=== PATIENT | female | born 1980 | race American Indian/Alaskan Native ===

== ENCOUNTER 2019-08-22 14:23 | Emergency (ER) | payer SELFPAY ==
--- NOTE | 2019-08-22 14:34 | Event Note ---
ED Screening Note Date of service: 08/22/19 Time: 14:30 ED Screening Note: 38 y/o female comes for lower back pain for years just worst last Sunday. Had a near fall today while at work. This initial assessment/diagnostic orders/clinical plan/treatment(s) is/are subject to change based on patients health status, clinical progression and re- assessment by fellow clinical providers in the ED. Further treatment and workup at subsequent clinical providers discretion. Patient/guardian urged not to elope from the ED as their condition may be serious if not clinically assessed and managed. Initial orders include:
[2019-08-22 14:36] VITALS: BP 128/81
[2019-08-22] MEDS ORDERED: KETOROLAC 30 MG/1 ML INJ IM ONE (15:40)
[2019-08-22] MEDS ORDERED: oxyCODONE /ACETAMINOPHEN 5-325MG TAB PO ONE (15:40)
--- NOTE | 2019-08-22 15:46 | Emergency Department Report ---
ED Back Pain/Injury HPI - General Chief Complaint: Back Pain/Injury Stated Complaint: PAIN IN LOWER BACK PAIN/FELL AT WORK Time Seen by Provider: 08/22/19 14:29 Source: patient Limitations: No Limitations - History of Present Illness Initial Comments: Nora is a 38 yo female with hx of asthma and back pian who presents with one week of central lower back pain. Sharp pain severe 8/10, worse with position change and bending. Has had recurrent back pain for 10+ year. Pain radiates to both buttocks. Due to pain, almost fell at work. MD Complaint: back pain -: Gradual, week(s) (1) Similar Symptoms Previously: Yes Place: home, work Radiation: buttocks Severity: severe Severity scale (0 -10): 8 Quality: sharp Consistency: constant Improves With: none Worsens With: none Associated Symptoms: denies other symptoms - Related Data Previous Rx's Medication Instructions Recorded Last Taken Type Cyclobenzaprine [Flexeril 10mg] 10 mg PO Q8H PRN #21 tablet 08/23/14 Unknown Rx HYDROcodone/APAP 5-325 [[place]aker 1 each PO Q6HR PRN #12 tablet 08/23/14 Unknown Rx 5-325 mg TAB] cephALEXin [Keflex] 500 mg PO TID #21 capsule 08/23/14 Unknown Rx Ibuprofen [Motrin 800 MG tab] 800 mg PO Q8HR PRN #30 tablet 10/27/16 Unknown Rx Cyclobenzaprine [Flexeril] 10 mg PO TID PRN #20 tablet 08/22/19 Unknown Rx HYDROcodone/APAP 5-325 [[place] 1 each PO Q6HR PRN #10 tablet 08/22/19 Unknown Rx 5/325] Ibuprofen [Motrin 800 MG tab] 800 mg PO TID #15 tablet 08/22/19 Unknown Rx Allergies Allergy/AdvReac Type Severity Reaction Status Date / Time No Known Allergies Allergy Verified 06/11/14 08:40 ED Review of Systems ROS: Stated complaint: PAIN IN LOWER BACK PAIN/FELL AT WORK Other details as noted in HPI Comment: All other systems reviewed and negative Constitutional: denies: fever, malaise Gastrointestinal: denies: abdominal pain, nausea, vomiting Musculoskeletal: back pain Neurological: denies: numbness, paresthesias ED Past Medical Hx - Past Medical History Previous Medical History?: Yes Hx Asthma: Yes - Surgical History Past Surgical History?: Yes Additional Surgical History: TUBAL LIGATION - Social History Smoking Status: Never Smoker Substance Use Type: None - Medications Home Medications: Home Medications Medication Instructions Recorded Confirmed Last Taken Type Cyclobenzaprine [Flexeril 10mg] 10 mg PO Q8H PRN #21 tablet 08/23/14 Unknown Rx HYDROcodone/APAP 5-325 [[place] 1 each PO Q6HR PRN #12 tablet 08/23/14 Unknown Rx 5-325 mg TAB] cephALEXin [Keflex] 500 mg PO TID #21 capsule 08/23/14 Unknown Rx Ibuprofen [Motrin 800 MG tab] 800 mg PO Q8HR PRN #30 tablet 10/27/16 Unknown Rx Cyclobenzaprine [Flexeril] 10 mg PO TID PRN #20 tablet 08/22/19 Unknown Rx HYDROcodone/APAP 5-325 [Honaker 1 each PO Q6HR PRN #10 tablet 08/22/19 Unknown Rx 5/325] Ibuprofen [Motrin 800 MG tab] 800 mg PO TID #15 tablet 08/22/19 Unknown Rx ED Physical Exam - General Limitations: No Limitations General appearance: alert, in no apparent distress - Head Head exam: Present: atraumatic, normocephalic - Eye Eye exam: Present: normal appearance - ENT ENT exam: Present: mucous membranes moist - Neck Neck exam: Present: normal inspection, full ROM - Respiratory Respiratory exam: Present: normal lung sounds bilaterally. Absent: respiratory distress, wheezes, rales, stridor - Cardiovascular Cardiovascular Exam: Present: regular rate, normal rhythm, normal heart sounds. Absent: systolic murmur, diastolic murmur, rubs, gallop - GI/Abdominal GI/Abdominal exam: Present: soft. Absent: distended, tenderness, guarding, rebound - Extremities Exam Extremities exam: Present: normal inspection - Back Exam Back exam: Present: normal inspection, full ROM, muscle spasm. Absent: tenderness, CVA tenderness (R), CVA tenderness (L) - Neurological Exam Neurological exam: Present: alert, oriented X3 - Psychiatric Psychiatric exam: Present: normal affect, normal mood - Skin Skin exam: Present: warm, dry, intact, normal color. Absent: rash ED Course Vital Signs 08/22/19 14:32 Temperature 98.1 F Pulse Rate 90 Respiratory 18 Rate Blood Pressure 128/81 O2 Sat by Pulse 98 Oximetry ED Medical Decision Making - Medical Decision Making Recurrent back pain differential diagnosis includes lumbar muscle strain, DDD no red flags such as bowel or bladder incontinence, trauma, drug use, trauma, unintentional weight loss. Given ketorolac Percocet and emergency department. Prescribed Percocet and Flexeril. UPT negative. Urinalysis unremarkable. I referred her to primary care physician office assistant receptionist. Additionally recommended physical therapy outpatient. Critical care attestation.: If time is entered above; I have spent that time in minutes in the direct care of this critically ill patient, excluding procedure time. ED Disposition Clinical Impression: Recurrent low back pain Disposition: - TO HOME OR SELFCARE Is pt being admited?: No Does the pt Need Aspirin: No Condition: Stable Instructions: Acute Low Back Pain (ED), Chronic Back Pain (ED) Prescriptions: Cyclobenzaprine [Flexeril] 10 mg PO TID PRN #20 tablet PRN Reason: Muscle Spasm Ibuprofen [Motrin 800 MG tab] 800 mg PO TID #15 tablet HYDROcodone/APAP 5-325 [Honaker 5/325] 1 each PO Q6HR PRN #10 tablet PRN Reason: Pain Referrals: MERYL SHAW MD [Staff Physician] - 3-5 Days
[2019-08-22 16:00] LABS: HCG Qualitative,Urine Negative (Negative)
[2019-08-22 16:06] LABS: Bilirubin,Urine NEG (Negative); Blood,Urine NEG (Negative); Color,Urine Amber (Yellow); Mucus,Urine 3+ /HPF
== END 2019-08-22 16:59 | disposition home or self-care (01) ==
LOC: ED 14:23
DX: M54.5 Low back pain (principal); J45.909 Unspecified asthma, uncomplicated
CPT/HCPCS: 81001; 81025; 96372; 99283; J1885

== ENCOUNTER 2019-11-12 10:37 | Emergency (ER) | payer SELFPAY ==
[2019-11-12] MEDS ORDERED: IPRATROPIUM/ALBUTEROL SULFATE 3 ML AMPUL.NEB IH ONE ×2 (15:28→15:35)
--- NOTE | 2019-11-12 15:29 | Emergency Department Report ---
ED General Adult HPI - General Chief complaint: Nausea/Vomiting/Diarrhea Stated complaint: GENERAL ILLNESS,CHILLS Time Seen by Provider: 11/12/19 14:04 Source: patient Mode of arrival: Ambulatory Limitations: No Limitations - History of Present Illness Initial comments: 38yo BF states that she has body aches, chill and cough x 1 week. She further states that she experienced N/V and diarrhea. Pt verbalizes that she has a history of bronchitis. -: week(s) (1) Location: chest Radiation: non-radiation Severity scale (0 -10): 5 Quality: aching Consistency: intermittent Worsens with: none Associated Symptoms: malaise, nausea/vomiting Treatments Prior to Arrival: none - Related Data Previous Rx's Medication Instructions Recorded Last Taken Type Cyclobenzaprine [Flexeril 10mg] 10 mg PO Q8H PRN #21 tablet 08/23/14 Unknown Rx HYDROcodone/APAP 5-325 [Roy 1 each PO Q6HR PRN #12 tablet 08/23/14 Unknown Rx 5-325 mg TAB] cephALEXin [Keflex] 500 mg PO TID #21 capsule 08/23/14 Unknown Rx Ibuprofen [Motrin 800 MG tab] 800 mg PO Q8HR PRN #30 tablet 10/27/16 Unknown Rx Cyclobenzaprine [Flexeril] 10 mg PO TID PRN #20 tablet 08/22/19 Unknown Rx HYDROcodone/APAP 5-325 [Roy 1 each PO Q6HR PRN #10 tablet 08/22/19 Unknown Rx 5/325] Ibuprofen [Motrin 800 MG tab] 800 mg PO TID #15 tablet 08/22/19 Unknown Rx ALBUTEROL Inhaler (OR & NICU) 2 puff IH QID PRN #8.5 gram 11/12/19 Unknown Rx [ProAir HFA Inhaler] Allergies Allergy/AdvReac Type Severity Reaction Status Date / Time No Known Allergies Allergy Verified 06/11/14 08:40 ED Review of Systems ROS: Stated complaint: GENERAL ILLNESS,CHILLS Other details as noted in HPI Comment: All other systems reviewed and negative Constitutional: no symptoms reported Respiratory: see HPI ED Past Medical Hx - Past Medical History Previous Medical History?: Yes Hx Asthma: Yes - Surgical History Past Surgical History?: Yes Additional Surgical History: TUBAL LIGATION - Social History Smoking Status: Never Smoker Substance Use Type: None - Medications Home Medications: Home Medications Medication Instructions Recorded Confirmed Last Taken Type Cyclobenzaprine [Flexeril 10mg] 10 mg PO Q8H PRN #21 tablet 08/23/14 Unknown Rx HYDROcodone/APAP 5-325 [Roy 1 each PO Q6HR PRN #12 tablet 08/23/14 Unknown Rx 5-325 mg TAB] cephALEXin [Keflex] 500 mg PO TID #21 capsule 08/23/14 Unknown Rx Ibuprofen [Motrin 800 MG tab] 800 mg PO Q8HR PRN #30 tablet 10/27/16 Unknown Rx Cyclobenzaprine [Flexeril] 10 mg PO TID PRN #20 tablet 08/22/19 Unknown Rx HYDROcodone/APAP 5-325 [Roy 1 each PO Q6HR PRN #10 tablet 08/22/19 Unknown Rx 5/325] Ibuprofen [Motrin 800 MG tab] 800 mg PO TID #15 tablet 08/22/19 Unknown Rx ALBUTEROL Inhaler (OR & NICU) 2 puff IH QID PRN #8.5 gram 11/12/19 Unknown Rx [ProAir HFA Inhaler] ED Physical Exam - General Limitations: No Limitations General appearance: alert, in no apparent distress - Head Head exam: Present: atraumatic, normocephalic - Eye Eye exam: Present: normal appearance, PERRL, EOMI - ENT ENT exam: Present: normal exam, normal orophraynx, TM's normal bilaterally - Neck Neck exam: Present: normal inspection, tenderness, meningismus - Respiratory Respiratory exam: Present: normal lung sounds bilaterally, prolonged expiratory. Absent: respiratory distress, wheezes, rales, rhonchi, stridor - Cardiovascular Cardiovascular Exam: Present: regular rate, normal rhythm, normal heart sounds - GI/Abdominal GI/Abdominal exam: Present: soft, normal bowel sounds. Absent: distended, tenderness, diminished bowel sounds - Rectal Rectal exam: Present: deferred - Extremities Exam Extremities exam: Present: normal inspection, full ROM. Absent: tenderness - Back Exam Back exam: Present: normal inspection, full ROM. Absent: tenderness, CVA tenderness (R), CVA tenderness (L) - Neurological Exam Neurological exam: Present: alert, altered, oriented X3, normal gait - Psychiatric Psychiatric exam: Present: normal affect, normal mood. Absent: depressed - Skin Skin exam: Present: warm, dry, intact ED Course Vital Signs 11/12/19 10:42 Temperature 98.9 F Pulse Rate 85 Respiratory 16 Rate Blood Pressure 146/78 O2 Sat by Pulse 98 Oximetry ED Medical Decision Making - Medical Decision Making 38yo BF states that she has body aches, chill and cough x 1 week. She further states that she experienced N/V and diarrhea. Pt verbalizes that she has a history of bronchitis. Pt was given a Duoneb treatment. She verbalized afterwards that she can breath easier and feels a lot better. Upon discharge the pt was instructed to use her TATYANA inhaler as instructed, f/u with her PCP in 2-3 days and see ER as needed. She verbalized understanding and agreed with the plan of care. Critical care attestation.: If time is entered above; I have spent that time in minutes in the direct care of this critically ill patient, excluding procedure time. ED Disposition Clinical Impression: Bronchitis Disposition: - TO HOME OR SELFCARE Is pt being admited?: No Does the pt Need Aspirin: No Condition: Stable Instructions: Chronic Bronchitis (ED) Additional Instructions: Upon discharge the pt was instructed to use her TATYANA inhaler as instructed, f/u with her PCP in 2-3 days and see ER as needed. She verbalized understanding and agreed with the plan of care. Prescriptions: ALBUTEROL Inhaler (OR & NICU) [ProAir HFA Inhaler] 2 puff IH QID PRN #8.5 gram PRN Reason: Shortness Of Breath Referrals: PRIMARY CARE, [Primary Care Provider] - 3-5 Days [facility] [Outside] - 3-5 Days
[2019-11-12 16:02] VITALS: BP 141/76
[2019-11-12] MEDS ORDERED: IPRATROPIUM/ALBUTEROL SULFATE 3 ML AMPUL.NEB IH SCH (20:00)
== END 2019-11-12 16:00 | disposition home or self-care (01) ==
LOC: ED 10:37
DX: J40 Bronchitis, not specified as acute or chronic (principal); Z98.51 Tubal ligation status; Z79.899 Other long term (current) drug therapy
CPT/HCPCS: 94640; 99282